=== PATIENT | male | born 1955 | race Caucasian/White ===

== ENCOUNTER → 2025-06-11 | Day surgery (SDC) | payer OTHER ==
[~2025-06-11] VITALS: Ht 172.7 cm; Wt 80.8 kg
[~2025-06-11] MED LIST: ALBU90AE IH; ASPI325T14 PO; ATOR40TA PO; CHOL400C PO; DIPRIVAN IV ONE; LISI20TA21 PO; PANT40TA6 PO; POTA99TA25 PO; PRAS10TA20 PO; TAMS-54 PO; VERSED ONE; WATER ONE; XYLOCAINE 2% 5ML VIAL ONE
[2025-06-11 07:25] VITALS: BP 106/71; PULSE 85; RESP 16; TEMP 97.4; O2SAT 96
[2025-06-11] MEDS: LACTATED RINGERS 1,000 ML IV ONE (07:45)
[2025-06-11 07:57] LABS: BASOPHIL # 0.1 10^3/uL (0.0-0.1); BASOPHIL % 0.7 % (0.2-1.2); EOSINOPHIL # 0.0 10^3/uL (0.0-0.2); EOSINOPHIL % 0.0 % (0.0-5.0); HEMATOCRIT(ML) 49.5 % (37.0-53.0); IG % 0.00 % (0.00-0.50); LYMPHOCYTES # 1.64 10^3/uL1 (1.0-4.8); LYMPHOCYTES % 22.8 % (24.0-44.0); MEAN CORP HGB 33.4 pg (26-34); MEAN CORP HGB CONCENTRATION 33.3 g/dL (33-36.5); MEAN CORP VOLUME 100.2 fL (78-100); MONOCYTES # 0.8 10^3/uL (0.3-0.8); MONOCYTES % 11.0 % (5.0-12.0); NEUTROPHIL # 4.7 10^3/uL (1.8-7.7); NEUTROPHILS % 65.5 % (41.0-85.0); RED BLOOD CELL 4.94 10^6/uL (4.50-5.90); RED CELL DISTRIBUTION WIDTH 12.9 % (11.5-14.5); WHITE BLOOD CELL 7.2 10^3/uL (4.5-11.0)
[2025-06-11 08:11] LABS: INR 1.0; PROTHROMBIN PROTIME 10.3 SEC (9.3-11.6)
[2025-06-11 08:16] LABS: ALANINE AMINOTRANSFERASE(ML) 38.0 U/L (12-78); ALBUMIN(ML) 4.3 g/dL (3.4-5.0); CREATININE SERUM 1.15 mg/dL (0.59-1.40); EST GFR, NON-AA 63.2 (>/=60)
[2025-06-11 08:46] VITALS: TEMP 98.1
[2025-06-11 09:06] VITALS: BP 95/52; PULSE 68; RESP 14; TEMP 97.6; O2SAT 95
[2025-06-11 09:20] VITALS: BP 110/55; PULSE 63; RESP 14; O2SAT 93
[2025-06-11 09:35] VITALS: BP 83/44; PULSE 71; RESP 14; O2SAT 93
[2025-06-11 09:50] VITALS: BP 112/83; PULSE 58; RESP 14; O2SAT 97
== END | disposition home or self-care (01) ==
LOC: SDC 07:07
PROVIDERS: ATTEND Surgery
DX: R10.13 Epigastric pain (principal); K29.50 Unspecified chronic gastritis without bleeding; K44.9 Diaphragmatic hernia without obstruction or gangrene; K21.00 Gastro-esophageal reflux disease with esophagitis, without bleeding; K92.0 Hematemesis; I10 Essential (primary) hypertension; J44.9 Chronic obstructive pulmonary disease, unspecified; N40.0 Benign prostatic hyperplasia without lower urinary tract symptoms; E78.00 Pure hypercholesterolemia, unspecified; Z83.3 Family history of diabetes mellitus; Z88.8 Allergy status to other drugs, medicaments and biological substances; Z79.899 Other long term (current) drug therapy; Z98.890 Other specified postprocedural states
CPT/HCPCS: 43239; 80053; 85025; 36415; 88305; 85610; 85730; 93005; A4217; J2704; J2003; J2250